=== PATIENT | female | born 1990 | race Two or more races ===

== ENCOUNTER 2022-12-17 13:45 | Inpatient (IN) | payer OTHER ==
[~2022-12-17] VITALS: Ht 152.4 cm; Wt 68.9 kg
[2022-12-24] MEDS ORDERED: PRENATAL TABLE1 EAC1 PO (11:38)
[2022-12-24] MEDS ORDERED: VITAMIN C100 MG PO (11:39)
[2022-12-24] MEDS ORDERED: FOLIC ACID20 MG PO (11:39)
== END 2022-12-27 12:58 | disposition home or self-care (01) | DRG 807 ==
LOC: LDR 12-24 10:57 → OB/GYN 12-24 10:57 → LDR 12-30 13:45
PROVIDERS: ADMIT Obstetrics & Gynecology; ATTEND Obstetrics & Gynecology
PROC: 3E0P7VZ Introduction of Hormone into Female Reproductive, Via Natural or Artificial Opening (ICD-10-PCS; 2022-12-24)
PROC: 4A1HXCZ Monitoring of Products of Conception, Cardiac Rate, External Approach (ICD-10-PCS; 2022-12-24)
PROC: 10D07Z6 Extraction of Products of Conception, Vacuum, Via Natural or Artificial Opening (ICD-10-PCS; principal; 2022-12-25)
PROC: 0UQG7ZZ Repair Vagina, Via Natural or Artificial Opening (ICD-10-PCS; 2022-12-25)
PROC: 0UQMXZZ Repair Vulva, External Approach (ICD-10-PCS; 2022-12-25)
PROC: 3E033VJ Introduction of Other Hormone into Peripheral Vein, Percutaneous Approach (ICD-10-PCS; 2022-12-25)
DX: O71.4 Obstetric high vaginal laceration alone (principal); O71.82 Other specified trauma to perineum and vulva; Z37.0 Single live birth; O66.5 Attempted application of vacuum extractor and forceps; Z3A.39 39 weeks gestation of pregnancy; Z20.822 Contact with and (suspected) exposure to COVID-19